=== PATIENT | female | born 1990 | race Caucasian/White ===

== ENCOUNTER 2017-07-03 15:56 | Emergency (ER) | payer SELFPAY ==
[~2017-07-03] VITALS: Ht 170.2 cm; Wt 76.0 kg
[2017-07-03 16:34] VITALS: BP 116/71; PULSE 129; RESP 17; TEMP 100.4; O2SAT 98
--- NOTE | 2017-07-03 18:02 | PD ---
HPI Chief Complaint: Complaint Time Seen by Provider: 17:48 Travel History International Travel<30 days: No Contact w/Intl Traveler<30days: No Traveled to known affect area: No History of Present Illness HPI 26-year-old female presents emergency department with several day history of not feeling well. Patient states increased urinary frequency, and recent increased left-sided flank pain and abdominal discomfort. Patient states that last evening she had the chills and "could not get warm." She denies sexual activity or . Patient recently finished her menstrual cycle. Patient has had nausea without vomiting the last 24 hours. She has had some minor diarrhea. She has had some chest congestion as well with no significant cough or wheezing. No shortness of breath. No upper respiratory symptoms. Pain in the left flank is about a 7 out of 10. She has no known drug allergies. [facility] Social History Alcohol Use: Yes Tobacco Use: Yes Substance Use: No Allergies-Medications (Allergen,Severity, Reaction): Coded Allergies: No Known Allergies (Unverified , 07/03/17) Reported Meds & Prescriptions Reported Meds & Active Scripts Active No Active Prescriptions or Reported Medications Review of Systems Except as stated in HPI: all other systems reviewed are Neg General / Constitutional: Positive: Fever, Chills Eyes: No: Visual changes HENT: No: Headaches Cardiovascular: No: Chest Pain or Discomfort Respiratory: Positive: Cough, No: Shortness of Breath Gastrointestinal: Positive: Nausea, No: Abdominal Pain Genitourinary: Positive: Urgency, Frequency, Pelvic Pain, Flank Pain, No: Dysuria Musculoskeletal: No: Pain Skin: No Rash Neurologic: No: Weakness Psychiatric: No: Depression Endocrine: No: Polydipsia Hematologic/Lymphatic: No: Easy Bruising Physical Exam Narrative GENERAL: Patient appears in mild to moderate distress per SKIN: Warm and mildly diaphoretic. Normal color. Normal turgor. HEAD: Atraumatic. Normocephalic. EYES: Pupils equal and round. No scleral icterus. No injection or drainage. ENT: No nasal bleeding or discharge. Mucous membranes pink and moist. Pharynx is clear. Airways patent. NECK: Trachea midline. Supple and nontender per CARDIOVASCULAR: Regular rate and rhythm. RESPIRATORY: No accessory muscle use. Clear to auscultation. Breath sounds equal bilaterally. GASTROINTESTINAL: Abdomen soft, mild nonspecific left-sided discomfort with palpation, nondistended. Mild to moderate left CVA tenderness. No masses. No point tenderness or rebound. Hepatic and splenic margins not palpable. MUSCULOSKELETAL: Extremities without clubbing, cyanosis, or edema. No obvious deformities. NEUROLOGICAL: Awake and alert. No obvious cranial nerve deficits. Motor grossly within normal limits. Five out of 5 muscle strength in the arms and legs. Normal speech. PSYCHIATRIC: Appropriate mood and affect; insight and judgment normal. Data Data Last Documented VS Vital Signs Date Time Temp Pulse Resp B/P (MAP) Pulse Ox O2 Delivery O2 Flow Rate FiO2 07/03/17 18:13 100.0 129 20 116/71 (86) 98 Room Air Orders Orders Complete Blood Count With Diff (07/03/17 18:12) Comprehensive Metabolic Panel (07/03/17 18:12) Urinalysis - C+S If Indicated (07/03/17 18:12) Ceftriaxone Inj (Rocephin Inj) (07/03/17 18:15) Sodium Chloride 0.9% Flush (Ns Flush) (07/03/17 18:15) Ondansetron Odt (Zofran Odt) (07/03/17 18:15) Ed Urine Pregnancytest Poc (07/03/17 18:12) Sodium Chlor 0.9% 1000 Ml Inj (Ns 1000 M (07/03/17 18:15) Acetaminophen (Tylenol) (07/03/17 18:30) Beta Hcg (Quant/Titer) (07/03/17 18:12) Urine Culture (07/03/17 16:47) Labs Laboratory Tests Test 07/03/17 16:47 07/03/17 18:35 Urine Color YELLOW Urine Turbidity HAZY Urine pH 6.0 Urine Specific [place] 1.010 Urine Protein 30 mg/dL Urine Glucose (UA) NEG mg/dL Urine Ketones 80 mg/dL Urine Occult Blood MOD Urine Nitrite NEG Urine Bilirubin NEG Urine Urobilinogen 2.0 MG/DL Urine Leukocyte Esterase LARGE Urine RBC 6 /hpf Urine WBC /hpf Urine WBC Clumps MANY Urine Squamous Epithelial Cells 3 /hpf Urine Bacteria FEW /hpf Urine Mucus FEW /lpf Microscopic Urinalysis Comment CULTURE INDICATED White Blood Count 15.8 TH/MM3 Red Blood Count 4.69 MIL/MM3 Hemoglobin 13.1 GM/DL Hematocrit 39.0 % Mean Corpuscular Volume 83.2 FL Mean Corpuscular Hemoglobin 27.9 PG Mean Corpuscular Hemoglobin Concent 33.6 % Red Cell Distribution Width 12.5 % Platelet Count 312 TH/MM3 Mean Platelet Volume 7.3 FL Neutrophils (%) (Auto) 81.3 % Lymphocytes (%) (Auto) 8.0 % Monocytes (%) (Auto) 10.2 % Eosinophils (%) (Auto) 0.1 % Basophils (%) (Auto) 0.4 % Neutrophils # (Auto) 12.8 TH/MM3 Lymphocytes # (Auto) 1.3 TH/MM3 Monocytes # (Auto) 1.6 TH/MM3 Eosinophils # (Auto) 0.0 TH/MM3 Basophils # (Auto) 0.1 TH/MM3 CBC Comment DIFF FINAL Differential Comment MDM Medical Decision Making Medical Screen Exam Complete: Yes Emergency Medical Condition: Yes Differential Diagnosis Urinary tract infection. Pyelonephritis. Fever. . Ectopic. Narrative Course Labs ordered including CBC, CMP, serum hCG, urinalysis, and urine hCG IV access is obtained the patient is given 1000 mg of Rocephin IV, 1000 mL normal saline bolus, and 4 mg Zofran p.o. Patient is given 1000 mg acetaminophen p.o. Labs are pending. 1900 hrs. CARE the patient is turned over to Praneeth Gan PA-C who will determine final disposition. Scripts No Active Prescriptions or Reported Meds Condition: Rogerio Lizarraga July 03, 2017 18:02
[2017-07-03 18:13] VITALS: BP 116/71; PULSE 129; RESP 20; TEMP 100; O2SAT 98
[2017-07-03] MEDS ORDERED: SODIUM CHLORIDE 0.9% FLUSH 10 ML FLUSH IVF PRN (18:15)
[2017-07-03] MEDS ORDERED: cefTRIAXone INJ 1,000 MG in SODIUM CHLORIDE 0.9% INJ 100 ML IV ONE (18:15)
[2017-07-03] MEDS ORDERED: ONDANSETRON ODT 4 MG TAB PO ONE (18:15)
[2017-07-03] MEDS ORDERED: SODIUM CHLOR 0.9% 1000 ML INJ 1,000 ML IV ONE (18:15)
[2017-07-03] MEDS ORDERED: ACETAMINOPHEN 500 MG CPLT PO ONE (18:30)
[2017-07-03 18:51] LABS: BACTERIA, URINE FEW /hpf; BILIRUBIN, URINE NEG (NEG); BLOOD, URINE MOD (NEG); GLUCOSE,URINE NEG (NEG); KETONE, URINE 80 mg/dL (NEG); MUCUS URINE FEW /lpf (OCC); NITRITE,URINE NEG (NEG); SQUAMOUS EPITHELIAL CELL URINE 3 /hpf (0-5); URINE COLOR YELLOW (YELLW/STRAW); URINE LEUKOCYTE ESTERASE LARGE (NEG); WHITE BLOOD CELL CLUMPS MANY
[2017-07-03 18:52] LABS: AUTOMATED NEUTROPHIL # 12.8 TH/MM3 (1.8-7.7); BASOPHIL # 0.1 TH/MM3 (0-0.2); BASOPHIL % 0.4 % (0.0-2.0); EOSINOPHIL % 0.1 % (0.0-4.0); HEMOGLOBIN 13.1 GM/DL (11.6-15.3); LYMPHOCYTE # 1.3 TH/MM3 (1.0-4.8); MEAN CELL VOLUME 83.2 FL (80.0-100.0); MEAN CORPUSCULAR HEMOGLOBIN 27.9 PG (27.0-34.0); MEAN CORPUSCULAR HGB CONC 33.6 % (32.0-36.0); MEAN PLATELET VOLUME 7.3 FL (7.0-11.0); MONO % 10.2 % (0.0-8.0); MONOCYTE # 1.6 TH/MM3 (0-0.9); NEUT % 81.3 % (16.0-70.0); PLATELET COUNT 312 TH/MM3 (150-450); RED BLOOD COUNT 4.69 MIL/MM3 (4.00-5.30); RED CELL DISTRIBUTION WIDTH 12.5 % (11.6-17.2); WHITE BLOOD COUNT 15.8 TH/MM3 (4.0-11.0)
[2017-07-03 19:14] LABS: ALBUMIN 3.5 GM/DL (3.4-5.0); AST (GOT) 9 U/L (15-37); BICARBONATE 21.7 MEQ/L (21.0-32.0); BLOOD UREA NITROGEN 6 MG/DL (7-18); CALCIUM 9.1 MG/DL (8.5-10.1); CHLORIDE 99 MEQ/L (98-107); CREATININE 0.72 MG/DL (0.50-1.00); GLOMERULAR FILTRATION RATE 97 ML/MIN (>89); GLUCOSE,RANDOM 82 MG/DL (74-106); SODIUM (NA) 134 MEQ/L (136-145)
[2017-07-03 19:16] LABS: ALT (GPT) 14 U/L (10-53)
[2017-07-03 19:19] LABS: ALKALINE PHOSPHATASE 91 U/L (45-117); TOTAL PROTEIN 7.6 GM/DL (6.4-8.2)
[2017-07-03] MEDS ORDERED: CEPH-460 PO (19:27)
[2017-07-03] MEDS ORDERED: ZOFR4TAB3 SL (19:27)
[2017-07-03 19:29] VITALS: BP 113/59; PULSE 122; RESP 17; TEMP 100.2; O2SAT 98
--- NOTE | 2017-07-03 19:31 | PD ---
Physical Exam Date Seen by Provider: July 03, 2017 Time Seen by Provider: 19:28 Narrative GENERAL: This is a well-nourished, well-developed patient, in no apparent distress. SKIN: No rashes, ecchymoses or lesions. Warm and dry. HEAD: Atraumatic. Normocephalic. EYES: PERRL, EOMI, no discharge or injection. No scleral icterus. EARS: Clear NOSE: Nasal turbinates appear normal. THROAT: Mucosa pink and moist. Airway patent. NECK: Trachea midline. supple, moves head freely. LUNGS: Clear to auscultation. CV: Regular in rhythm. ABDOMEN: Soft nontender. No guarding rebound. EXT: No clubbing cyanosis or edema. Data Data Last Documented VS Vital Signs Date Time Temp Pulse Resp B/P (MAP) Pulse Ox O2 Delivery O2 Flow Rate FiO2 07/03/17 18:13 100.0 129 20 116/71 (86) 98 Room Air Orders Orders Complete Blood Count With Diff (07/03/17 18:12) Comprehensive Metabolic Panel (07/03/17 18:12) Urinalysis - C+S If Indicated (07/03/17 18:12) Ceftriaxone Inj (Rocephin Inj) (07/03/17 18:15) Sodium Chloride 0.9% Flush (Ns Flush) (07/03/17 18:15) Ondansetron Odt (Zofran Odt) (07/03/17 18:15) Ed Urine Pregnancytest Poc (07/03/17 18:12) Sodium Chlor 0.9% 1000 Ml Inj (Ns 1000 M (07/03/17 18:15) Acetaminophen (Tylenol) (07/03/17 18:30) Beta Hcg (Quant/Titer) (07/03/17 18:12) Urine Culture (07/03/17 16:47) Ed Discharge Order (07/03/17 19:26) Labs Laboratory Tests Test 07/03/17 16:47 07/03/17 18:35 Urine Color YELLOW Urine Turbidity HAZY Urine pH 6.0 Urine Specific [place] 1.010 Urine Protein 30 mg/dL Urine Glucose (UA) NEG mg/dL Urine Ketones 80 mg/dL Urine Occult Blood MOD Urine Nitrite NEG Urine Bilirubin NEG Urine Urobilinogen 2.0 MG/DL Urine Leukocyte Esterase LARGE Urine RBC 6 /hpf Urine WBC /hpf Urine WBC Clumps MANY Urine Squamous Epithelial Cells 3 /hpf Urine Bacteria FEW /hpf Urine Mucus FEW /lpf Microscopic Urinalysis Comment CULTURE INDICATED White Blood Count 15.8 TH/MM3 Red Blood Count 4.69 MIL/MM3 Hemoglobin 13.1 GM/DL Hematocrit 39.0 % Mean Corpuscular Volume 83.2 FL Mean Corpuscular Hemoglobin 27.9 PG Mean Corpuscular Hemoglobin Concent 33.6 % Red Cell Distribution Width 12.5 % Platelet Count 312 TH/MM3 Mean Platelet Volume 7.3 FL Neutrophils (%) (Auto) 81.3 % Lymphocytes (%) (Auto) 8.0 % Monocytes (%) (Auto) 10.2 % Eosinophils (%) (Auto) 0.1 % Basophils (%) (Auto) 0.4 % Neutrophils # (Auto) 12.8 TH/MM3 Lymphocytes # (Auto) 1.3 TH/MM3 Monocytes # (Auto) 1.6 TH/MM3 Eosinophils # (Auto) 0.0 TH/MM3 Basophils # (Auto) 0.1 TH/MM3 CBC Comment DIFF FINAL Differential Comment Blood Urea Nitrogen 6 MG/DL Creatinine 0.72 MG/DL Random Glucose 82 MG/DL Total Protein 7.6 GM/DL Albumin 3.5 GM/DL Calcium Level 9.1 MG/DL Alkaline Phosphatase 91 U/L Aspartate Amino Transf (AST/SGOT) 9 U/L Alanine Aminotransferase (ALT/SGPT) 14 U/L Total Bilirubin 1.0 MG/DL Sodium Level 134 MEQ/L Potassium Level 3.5 MEQ/L Chloride Level 99 MEQ/L Carbon Dioxide Level 21.7 MEQ/L Anion Gap 13 MEQ/L Estimat Glomerular Filtration Rate 97 ML/MIN Human Chorionic Gonadotropin, Quant LESS THAN 1 MIU/ML [facility] Medical Record Reviewed: Yes Supervised Visit with COREEN: No Interpretation(s) Laboratory Tests Test 07/03/17 16:47 07/03/17 18:35 Urine Color YELLOW Urine Turbidity HAZY Urine pH 6.0 Urine Specific [place] 1.010 Urine Protein 30 mg/dL Urine Glucose (UA) NEG mg/dL Urine Ketones 80 mg/dL Urine Occult Blood MOD Urine Nitrite NEG Urine Bilirubin NEG Urine Urobilinogen 2.0 MG/DL Urine Leukocyte Esterase LARGE Urine RBC 6 /hpf Urine WBC /hpf Urine WBC Clumps MANY Urine Squamous Epithelial Cells 3 /hpf Urine Bacteria FEW /hpf Urine Mucus FEW /lpf Microscopic Urinalysis Comment CULTURE INDICATED White Blood Count 15.8 TH/MM3 Red Blood Count 4.69 MIL/MM3 Hemoglobin 13.1 GM/DL Hematocrit 39.0 % Mean Corpuscular Volume 83.2 FL Mean Corpuscular Hemoglobin 27.9 PG Mean Corpuscular Hemoglobin Concent 33.6 % Red Cell Distribution Width 12.5 % Platelet Count 312 TH/MM3 Mean Platelet Volume 7.3 FL Neutrophils (%) (Auto) 81.3 % Lymphocytes (%) (Auto) 8.0 % Monocytes (%) (Auto) 10.2 % Eosinophils (%) (Auto) 0.1 % Basophils (%) (Auto) 0.4 % Neutrophils # (Auto) 12.8 TH/MM3 Lymphocytes # (Auto) 1.3 TH/MM3 Monocytes # (Auto) 1.6 TH/MM3 Eosinophils # (Auto) 0.0 TH/MM3 Basophils # (Auto) 0.1 TH/MM3 CBC Comment DIFF FINAL Differential Comment Blood Urea Nitrogen 6 MG/DL Creatinine 0.72 MG/DL Random Glucose 82 MG/DL Total Protein 7.6 GM/DL Albumin 3.5 GM/DL Calcium Level 9.1 MG/DL Alkaline Phosphatase 91 U/L Aspartate Amino Transf (AST/SGOT) 9 U/L Alanine Aminotransferase (ALT/SGPT) 14 U/L Total Bilirubin 1.0 MG/DL Sodium Level 134 MEQ/L Potassium Level 3.5 MEQ/L Chloride Level 99 MEQ/L Carbon Dioxide Level 21.7 MEQ/L Anion Gap 13 MEQ/L Estimat Glomerular Filtration Rate 97 ML/MIN Human Chorionic Gonadotropin, Quant LESS THAN 1 MIU/ML Differential Diagnosis Differential diagnosis: Sepsis, Sirs, pyelonephritis, UTI, intra-abdominal process Narrative Course IV access is obtained. Patient was given a liter bolus of saline. 1 g of Rocephin IV. 1 g of Tylenol p.o. Patient is given p.o. fluid challenge along with 800 mg of ibuprofen. Patient is medically stable. She will be discharged home on Keflex and Zofran. Diagnosis Primary Impression: Left pyelonephritis Referrals: [facility] 2 days Patient Instructions: General Instructions Additional Instruction: Rest. Increase fluids. Keflex and Zofran. Follow-up with a primary care doctor in 1-2 days. Return to the ER for any problems. Med/Other Pt SpecificInfo: Prescription(s) given Scripts Ondansetron Odt (Zofran Odt) 4 Mg Tab 4 MG SL Q6HR Y for Nausea/Vomiting, #6 TAB 0 Refills Prov: Asher Ford MD 07/03/17 Cephalexin (Keflex) 500 Mg Capsule 500 MG PO Q8H for Infection for 10 Days, #30 CAP 0 Refills Prov: Asher Ford MD 07/03/17 Disposition: 01 DISCHARGE HOME Condition: Stable Armando Lyons July 03, 2017 19:31
[2017-07-03] MEDS ORDERED: IBUPROFEN 800 MG TAB PO ONE (19:45)
== END 2017-07-03 19:54 | disposition home or self-care (01) ==
LOC: NEPD 15:56
DX: N12 Tubulo-interstitial nephritis, not specified as acute or chronic (principal); Z72.0 Tobacco use
CPT/HCPCS: 80053; 81001; 84702; 84703; 85025; 87077; 87086; 87186; 96374; 99284; J0696; J7030